=== PATIENT | male | born 1970 | race African-American/Black ===

== ENCOUNTER 2019-06-09 09:53 | Emergency (ER) | payer BC, MEDICAID ==
[~2019-06-09] VITALS: Ht 175.3 cm; Wt 85.0 kg
[2019-06-09] MEDS ORDERED: IBUPROFEN 400MG TABLET PO ONE (11:00)
[2019-06-09 11:08] VITALS: BP 143/77
== END 2019-06-09 12:29 | disposition left against medical advice (07) ==
LOC: ER 10:05
DX: K13.79 Other lesions of oral mucosa (principal); K08.89 Other specified disorders of teeth and supporting structures; W50.0XXA Accidental hit or strike by another person, initial encounter; Y93.67 Activity, basketball; Y92.89 Other specified places as the place of occurrence of the external cause
CPT/HCPCS: 99281